=== PATIENT | female | born 1990 | race Caucasian/White ===

== ENCOUNTER 2016-12-11 22:14 | Emergency (ER) | payer OTHER ==
[~2016-12-11 22:14] MED LIST: AMOXICILLIN500 MG PO
== END 2016-12-11 22:22 | disposition left against medical advice (07) ==
LOC: ED 22:14
DX: Z53.21 Procedure and treatment not carried out due to patient leaving prior to being seen by health care provider (principal)

== ENCOUNTER 2024-04-23 22:32 | Emergency (ER) | payer OTHER ==
[~2024-04-23] VITALS: Ht 165.1 cm; Wt 70.8 kg
--- OUTSIDE RECORDS SUMMARY | 2024-04-23 22:39 | XMS ---
PreManage Notification: SAMANTHA AQUINO Security [employer] Events No recent Security Events currently on file CRITERIA MET - Group Notification CARE PROVIDERS [place] [facility] Current MEDICAL GROUP PHONE: Unknown Musa has no Care Guidelines for this patient. E[place]en VISIT COUNT (12 MO.) 1 LIDIA Desai TOTAL 1 NOTE: Visits indicate total known visits. ED/UCC VISIT TRACKING (12 MO.) 04/23/2024 22:[address] [facility] TYPE: Emergency COMPLAINT: - FACIAL/THROAT SWELLING INPATIENT VISIT TRACKING (12 MO.) No inpatient visits to display in this time frame [email or web address]
[2024-04-23] MEDS ORDERED: diphenhydrAMINE HCL 50 MG/ML VIAL IV ONE (23:00)
[2024-04-23] MEDS ORDERED: FAMOTIDINE 20 MG/ 2 ML VIAL IV ONE (23:00)
[2024-04-23] MEDS ORDERED: DEXAMETHASONE SOD PHOS 10 MG/ML VIAL IV ONE (23:00)
[2024-04-23] MEDS ORDERED: CETIRIZINE HCL 10 MG TAB PO ONE (23:00)
[2024-04-23 23:07] LABS: BASOPHILS 0.3 % (0-2); EOSINOPHILS 0.4 % (0-6); HEMATOCRIT 35.6 % (35.0-50.0); HEMOGLOBIN 11.6 g/dL (12.0-18.0); LYMPHOCYTES 36.4 % (24-44); MCHC 32.5 g/dl (30-36); MCV 79.9 fl (81-99); MONOCYTES 7.3 % (0-12); NEUTROPHILS 55.6 % (39-80); PLATELET COUNT 299 K/uL (140-440); RBC 4.45 M/ul (4.3-5.7); RDW 15.1 (10.5-15.0)
[2024-04-24] MEDS ORDERED: methylPREDNISolone 4 MG HOME.PACK PO ONE ×2 (00:20→00:30)
[2024-04-24] MEDS ORDERED: CETIRIZINE HCL10 MG PO (00:22)
[2024-04-24 00:37] VITALS: BP 105/77
== END 2024-04-24 00:38 | disposition home or self-care (01) ==
LOC: ED 22:32
PROVIDERS: Family Medicine
DX: T78.40XA Allergy, unspecified, initial encounter (principal)
CPT/HCPCS: 36415; 85025; 86140; 96374; 96375; 99283-25; J1100; J1200